=== PATIENT | male | born 1955 ===

== ENCOUNTER 2017-01-04 08:30 | Day surgery (SDC) | payer MEDICARE, OTHER ==
[2016-08-18 10:47] VITALS: BMI 30.1
[2017-01-04 08:52] VITALS: RESP 18
[2017-01-04] MEDS ORDERED: Lidocaine 1% Inj (20ml) ONE (09:29)
[2017-01-04] MEDS ORDERED: Iohexol 300 10 ML ONE (09:29)
[2017-01-04] MEDS ORDERED: MethylPREDNISolone Depo 40 mg/ml Inj ONE (09:29)
[2017-01-04] MEDS ORDERED: Bupivacaine HCl 0.25% PF (10 ml) Inj ONE (09:29)
[2017-01-04] MEDS ORDERED: Propofol 10 mg/ml Inj (20 ML) ONE (10:05)
[2017-01-04] MEDS ORDERED: Midazolam 2 MG/2 ML VIAL ONE (10:06)
[2017-01-04] MEDS ORDERED: Lactated Ringer's 1,000 ML IV ONE (10:10)
[2017-01-04] MEDS ORDERED: Lidocaine 1% Inj (20ml) IJ ONE (10:20)
[2017-01-04] MEDS ORDERED: methylPREDNISolone Depo 80 mg/ml Inj IM ONE (10:20)
[2017-01-04] MEDS ORDERED: Iohexol 300 10 ML IJ ONE (10:20)
[2017-01-04] MEDS ORDERED: Insulin Regular 100 units/ml SC SCH (11:30)
--- NOTE | 2017-01-04 11:36 | OP ---
PROCEDURE DATE: 01/04/2017 PROCEDURE: Right transforaminal epidural at right L5 under fluoroscopic guidance. PREOPERATIVE DIAGNOSIS: Lumbar radiculopathy. POSTOPERATIVE DIAGNOSIS: Lumbar radiculopathy. COMPLICATIONS: None. EXPECTED BLOOD LOSS: None. After informed consent was obtained, the patient was brought to the OR and placed on the table in prone position. All pressure points were padded, and sedation was administered by anesthesia. Next, lumbosacral spine was then prepped and draped with iodine x 3 and draped in normal sterile fashion. The right L5 transforaminal space was identified using AP and oblique views. One mL of 1% lidocaine was used to create a skin wheal. Using a 22 gauge 3-1/2 inch spinal needle, the needle was advanced into the right L5 transforaminal epidural space, towards 6 oclock position on right L5 pedicle, without paresthesia. After negative aspiration for heme or CSF, 2 mL of Omnipaque 300 contrast dye was used to delineate the epidural space. After negative aspiration for heme or CSF, 5 mL of 0.5% lidocaine and Depo-Medrol was easily instilled. This procedure was attempted at the right L4 transforaminal epidural space, but the needle could not be inserted into the right L4 transforaminal epidural space. The patient had no paresthesia during the procedure. Depo-Medrol 80 mg were used for the case. The patient had no paresthesia during the procedure. The patient was brought to stage II recovery room with bilateral lower extremity motor and sensory intact. Ubaldo Bowser MD cc: [id number] TT: 01/04/2017 11:35:23 en MTDD
[2017-01-04 11:46] VITALS: BP 121/74; PULSE 59; TEMP 97.6
[2017-01-04 13:04] VITALS: O2SAT 99
--- NOTE | 2017-01-05 13:41 | RAD ---
PROCEDURE: Intraoperative Fluoroscopy. HISTORY: PAIN MANAGEMENT FINDINGS: Fluoroscopic assistance was provided for epidural pain management procedure. Approximately 51.6 seconds fluoroscopy time utilized during this procedure. Radiation dose = 13.99 mGy. Please refer to
== END 2017-01-04 13:00 | disposition home or self-care (01) ==
LOC: H.OPSURG 08:30
PROVIDERS: ATTEND Anesthesiology Pain Medicine
DX: M54.16 Radiculopathy, lumbar region (principal); E11.9 Type 2 diabetes mellitus without complications
CPT/HCPCS: 64483; 82948; J1030; J1040; J2250; J2704; J3010; J7120; Q9967

== ENCOUNTER 2017-06-14 10:31 | Day surgery (SDC) | payer MEDICARE, SELFPAY ==
[2017-06-09 16:50] VITALS: BMI 27.4
[2017-06-14] MEDS ORDERED: Lidocaine 1% 20 MG/2 ML PF AMP ONE (12:52)
[2017-06-14] MEDS ORDERED: methylPREDNISolone Depo 80 mg/ml Inj ONE (12:52)
[2017-06-14] MEDS ORDERED: Iohexol 300 10 ML ONE (12:53)
[2017-06-14] MEDS ORDERED: Lidocaine 1% Inj (20ml) ONE (12:53)
[2017-06-14] MEDS ORDERED: Lidocaine 2% MPF (5 ml) Inj ONE (12:54)
[2017-06-14] MEDS ORDERED: Propofol 10 mg/ml Inj (20 ML) ONE (12:54)
[2017-06-14] MEDS ORDERED: Bupivacaine HCl 0.25% PF (10 ml) Inj ONE (13:14)
[2017-06-14] MEDS ORDERED: Lactated Ringer's 1,000 ML IV ONE (13:14)
[2017-06-14 15:41] VITALS: TEMP 98.2
[2017-06-14 16:06] VITALS: BP 127/77; PULSE 62; RESP 18; O2SAT 98
--- NOTE | 2017-06-14 18:50 | RAD ---
PROCEDURE: Epidural injection HISTORY: PAIN MANAGEMENT COMPARISON: None TECHNIQUE: Standard protocol for this study/examination. FINDINGS: Total fluoroscopic time (continuous mode) utilized during the procedure: 3.8 seconds. IMPRESSION: Less than 1 hr fluoroscopic time utilized during performance of the procedure.
--- NOTE | 2017-06-15 11:34 | OP ---
PROCEDURE DATE: 06/14/2017 PREOPERATIVE DIAGNOSIS: Lumbar radiculopathy. POSTOPERATIVE DIAGNOSIS: Lumbar radiculopathy. PROCEDURE: Caudal epidural under fluoroscopic guidance. ESTIMATED BLOOD LOSS: None. COMPLICATIONS: None. DESCRIPTION OF PROCEDURE: After informed consent was obtained, the patient was brought to the OR and placed on the table in a prone position. All pressure points were padded and sedation was administered by Anesthesia. The lumbosacral spine was prepped and draped with iodine x3 and draped in normal sterile fashion. 2 mL of 1% lidocaine was used to create a skin wheal using a 25-gauge needle. X-ray was used in the AP and lateral views to identify the sacral hiatus. A 22-gauge Tuohy needle was advanced under fluoroscopic guidance to lloyd the sacrococcygeal ligament. There was no paresthesia during placement of the needle. After a negative aspiration for heme or CSF, 2 mL of contrast was used to delineate the epidural space. After negative aspiration for heme or CSF, 20 mL of mixture of 0.5% preservative free lidocaine, 0.25% preservative free Marcaine, and 80 mg of Depo-Medrol was easily instilled into the epidural space. There was no paresthesia during the procedure. After the injection, the patient was brought to stage II recovery room. The patient had bilateral lower extremity motor and sensory intact. The patient was discharged to same day surgery with stable vital signs. Ubaldo Bowser MD YELITZA
== END 2017-06-14 16:27 | disposition home or self-care (01) ==
LOC: H.OPSURG 10:31
PROVIDERS: ATTEND Anesthesiology Pain Medicine
DX: M54.16 Radiculopathy, lumbar region (principal); I25.10 Atherosclerotic heart disease of native coronary artery without angina pectoris; G40.909 Epilepsy, unspecified, not intractable, without status epilepticus; E11.9 Type 2 diabetes mellitus without complications
CPT/HCPCS: 62323; 82948; J1040; J2704; J7120; Q9967

== ENCOUNTER 2017-12-13 10:51 | Day surgery (SDC) | payer MEDICARE, MEDICAID, OTHER ==
[2017-12-13 11:53] VITALS: BMI 29.4
[2017-12-13] MEDS ORDERED: Propofol 10 mg/ml Inj (20 ML) ONE (15:02)
[2017-12-13] MEDS ORDERED: Lidocaine Hydrochloride 1% 20 ML ONE (15:04)
[2017-12-13] MEDS ORDERED: MethylPREDNISolone Depo 40 mg/ml Inj ONE (15:04)
[2017-12-13] MEDS ORDERED: Lidocaine 1% (10 ml) Inj IV ONE (15:27)
[2017-12-13] MEDS ORDERED: MethylPREDNISolone Depo 40 mg/ml Inj IM ONE (15:27)
[2017-12-13] MEDS ORDERED: Lactated Ringer's 1,000 ML IV ONE (15:37)
[2017-12-13] MEDS ORDERED: Lactated Ringer's 1,000 ML IV SCH (16:30)
[2017-12-13 16:58] VITALS: O2SAT 100
[2017-12-13 17:02] VITALS: BP 111/70; PULSE 52; RESP 18; TEMP 98
--- NOTE | 2017-12-13 17:04 | RAD ---
PROCEDURE: Fluoroscopy up to 1 hr. HISTORY: INJECTION COMPARISON: None TECHNIQUE: Standard protocol for this study/examination. FINDINGS: Total fluoroscopic time (continuous mode) utilized during the procedure 16.5 (seconds). Total exam DLP: (mGy) 2.14 IMPRESSION: Less than 1 hr fluoroscopic time utilized during performance of the procedure.
--- NOTE | 2017-12-17 07:09 | OP ---
DATE: 12/13/2017 LOCATION: [facility]. PREOPERATIVE DIAGNOSIS: Sacroiliitis. POSTOPERATIVE DIAGNOSIS: Sacroiliitis. PROCEDURE: Sacroiliac joint injection under x-ray guidance. SURGEON: Ubaldo Bowser MD ANESTHESIOLOGIST: Tito Lam MD COMPLICATIONS: None. ESTIMATED BLOOD LOSS: None. DESCRIPTION OF PROCEDURE: After informed consent was obtained, the patient was brought to the OR and placed on the table on prone position. All pressure points were padded and sedation was administered by Anesthesia. The lumbosacral spine was prepped with iodine x3 and draped in normal sterile fashion. X-ray was used in the AP view to identify the sacroiliac joint. A 3 mL of 1% lidocaine was used to create a skin wheal, using a 25-gauge needle. A 22-gauge 3-1/2-inch spinal needle was placed to bony contact at the inferomedial portion of the right sacroiliac joint. After negative aspiration for heme or CSF, 2 mL of 1% lidocaine and Depo-Medrol was easily instilled. This procedure was repeated for the middle and superior borders of the right sacroiliac joint and lower border of the left sacroiliac joint. There was no paresthesia during the case. An 80 mg of Depo-Medrol was used for the case. The patient was brought to stage II recovery room with bilateral lower extremity motor and sensory intact. Ubaldo Bowser MD MTDD
== END 2017-12-13 17:20 | disposition home or self-care (01) ==
LOC: H.OPSURG 10:51
PROVIDERS: ATTEND Anesthesiology Pain Medicine
DX: M46.1 Sacroiliitis, not elsewhere classified (principal); E11.9 Type 2 diabetes mellitus without complications; E78.5 Hyperlipidemia, unspecified; I10 Essential (primary) hypertension; G40.909 Epilepsy, unspecified, not intractable, without status epilepticus
CPT/HCPCS: 82948; G0259; J1030; J2704; J7120

== ENCOUNTER 2018-04-26 17:41 | Emergency (ER) | payer MEDICARE, MEDICAID ==
[2018-04-26 17:42] VITALS: BMI 29.4
[2018-04-26 17:53] VITALS: TEMP 97.7
--- NOTE | 2018-04-26 18:48 | ED PDOC ---
Lower Extremity Pain/Injury Time Seen by Provider: 04/26/18 18:38 Chief Complaint (Nursing): Chest Pain History Per: Patient Onset/Duration Of Symptoms: Days (2) Current Symptoms Are (Timing): Still Present Severity: Mild Additional Complaint(s): Left thigh pain x 2 days. No h/o trauma. Also c/o right sided chest pain. Denies SOB Past Medical History Vital Signs: Last Vital Signs Temp 97.7 F 04/26/18 17:50 Pulse 68 04/26/18 17:50 Resp 16 04/26/18 17:50 BP 97/61 L 04/26/18 17:50 Pulse Ox 98 04/26/18 17:50 - Medical History PMH: CAD, Diabetes, HTN, Hypercholesterolemia, Hypothyroidism, Seizures Denies: HIV, Chronic Kidney Disease - Surgical History Surgical History: CABG (X 5 in 2005) - Family History Family History: States: Unknown Family Hx, CAD - Immunization History Hx Tetanus Toxoid Vaccination: No Hx Influenza Vaccination: No Hx Pneumococcal Vaccination: No - Home Medications Home Medications: Ambulatory Orders Medication Instructions Recorded Lisinopril 20 mg PO DAILY 11/14/15 Vitamin B Complex 1 cap PO HS 11/14/15 Ascorbic Acid [Vitamin C] 1,000 mg PO HS #0 tablet 06/17/16 Aspirin [Aspirin EC] 325 mg PO HS #0 tablet. 06/17/16 Atorvastatin [Lipitor] 40 mg PO DAILY #0 tab 06/17/16 Glimepiride 1 mg PO BID #0 tablet 06/17/16 Magnesium Oxide 500 mg PO HS #0 tablet 06/17/16 MetFORMIN [glucoPHAGE] 1,000 mg PO BID #0 tab 06/17/16 Metoprolol Tartrate [Lopressor] 25 mg PO Q12 #0 tab 06/17/16 Calcium Carbonate/Vitamin D3 1 tab PO DAILY 08/18/16 [Calcium 1,000 + D3 Caplet] Cyanocobalamin [Vitamin B12 1000 1 tab PO DAILY 08/18/16 mcg Tab] Levetiracetam [Keppra] 1,500 mg PO BID 30 Days tablet 08/18/16 Sycbo-1-Hheb Ethyl Esters [OMEGA 3] 1,000 mg PO DAILY 08/18/16 Pyridoxine [Vitamin B6] 200 mg PO DAILY 08/18/16 Vitamin E [Vitamin E 400 Units Cap] 1 cap PO DAILY 08/18/16 Naproxen [Naprosyn] 500 mg PO Q12H #20 tab 04/26/18 - Allergies Allergies/Adverse Reactions: Allergies Allergy/AdvReac Type Severity Reaction Status Date / Time No Known Allergies Allergy Verified 04/26/18 17:50 Review of Systems ROS Statement: Except As Marked, All Systems Reviewed And Found Negative Cardiovascular: Positive for: Chest Pain Respiratory: Negative for: Shortness of Breath Musculoskeletal: Positive for: Leg Pain Physical Exam - Reviewed Nursing Documentation Reviewed: Yes Vital Signs Reviewed: Yes - Physical Exam Appears: Positive for: Non-toxic, No Acute Distress Head Exam: Positive for: ATRAUMATIC, NORMAL INSPECTION, NORMOCEPHALIC Skin: Positive for: Normal Color, Warm, DRY Eye Exam: Positive for: EOMI, Normal appearance, PERRL ENT: Positive for: Normal ENT Inspection Neck: Positive for: Normal, Painless ROM Cardiovascular/Chest: Positive for: Regular Rate, Rhythm Respiratory: Positive for: CNT, Normal Breath Sounds Gastrointestinal/Abdominal: Positive for: Normal Exam, Soft Back: Positive for: Normal Inspection Extremity: Positive for: Normal ROM. Negative for: Calf Tenderness, Swelling Neurologic/Psych: Positive for: Alert, Oriented - ECG O2 Sat by Pulse Oximetry: 98 Disposition - Clinical Impression Clinical Impression: Musculoskeletal pain - Patient ED Disposition Is Patient to be Admitted: No Counseled Patient/Family Regarding: Studies Performed, Diagnosis, Need For Followup, Rx Given - Disposition Referrals: [facility] [Outside] Disposition: Routine/Home Disposition Time: 20:58 Condition: FAIR Prescriptions: Naproxen [Naprosyn] 500 mg PO Q12H #20 tab Instructions: Muscle and Bone Pain (DC) Forms: [facility] (Hebrew)
[2018-04-26 21:19] VITALS: BP 114/63; PULSE 57; RESP 18; O2SAT 100
--- NOTE | 2018-04-27 12:57 | US ---
Date of service: 04/26/2018 PROCEDURE: Bilateral lower extremity venous duplex Doppler. HISTORY: Left thigh pain COMPARISON: None available. TECHNIQUE: Bilateral common femoral, superficial femoral, popliteal and posterior tibial veins were evaluated. Flow was assessed with color Doppler, compressibility, assessment of phasic flow and augmentation response. FINDINGS: COMMON FEMORAL VEIN: Right CFV: Unremarkable. Left CFV: Unremarkable. SUPERFICIAL FEMORAL VEIN: Right SFV: Unremarkable. Left SFV: Unremarkable. POPLITEAL VEIN: Right Popliteal: Unremarkable. Left Popliteal: Unremarkable. POSTERIOR TIBIAL VEIN: Right PTV: Unremarkable. Left PTV: Unremarkable. OTHER FINDINGS: None. IMPRESSION: No evidence of deep venous thrombosis. Concordant results (preliminary interpretation) provided by [facility]. Procedure Completed: 19:37. Preliminary ([facility]) Report: Dictated and Authenticated: 20:16. Final Interpretation: 12:55. April 27, 2018.
--- NOTE | 2018-04-27 13:23 | RAD ---
Date of service: 04/26/2018 HISTORY: Right sided chest pain COMPARISON: 08/18/2016 TECHNIQUE: Chest PA and lateral FINDINGS: LUNGS: No active pulmonary disease. PLEURA: No significant pleural effusion identified. No pneumothorax apparent. CARDIOVASCULAR: No radiographic findings to suggest acute or significant cardiovascular disease. Incidental Finding(s): Postoperative changes related to sternotomy. OSSEOUS STRUCTURES: No significant abnormalities. VISUALIZED UPPER ABDOMEN: Normal. OTHER FINDINGS: None. IMPRESSION: No significant interval change compared to the prior examination(s).
== END 2018-04-26 21:20 | disposition home or self-care (01) ==
LOC: H.ER 17:41
DX: M79.1 Myalgia (principal); E03.9 Hypothyroidism, unspecified; E11.9 Type 2 diabetes mellitus without complications; E78.00 Pure hypercholesterolemia, unspecified; I10 Essential (primary) hypertension; Z79.82 Long term (current) use of aspirin; Z79.84 Long term (current) use of oral hypoglycemic drugs; Z82.49 Family history of ischemic heart disease and other diseases of the circulatory system; Z95.1 Presence of aortocoronary bypass graft; I25.10 Atherosclerotic heart disease of native coronary artery without angina pectoris

== ENCOUNTER 2018-09-09 19:06 | Emergency (ER) | payer MEDICARE, SELFPAY ==
[2018-09-09 19:06] VITALS: BMI 29.4
[2018-09-09 19:17] VITALS: RESP 18; O2SAT 97
[2018-09-09] MEDS ORDERED: Sodium Chloride 0.9% 500 ML IV ONE (20:11)
--- NOTE | 2018-09-09 20:15 | ED PDOC ---
History of Present Illness History of Present Illness: 63 year old male with CAD (5 bypasses), DM, Epilepsy, HTN, HLD presenting with cough, congestion x 5 weeks. States he has had the "flu" for 5 weeks with nasal congestion, headaches, bodyaches. States he's been using only natural remedies with honey and lemon and a Cameroonian remedy called "osborne" without relief. [facility] he returned from [place] recently and is concerned he contracted an illness while he was over there. [facility] for the past 2 days he has been having chest pain as well as a result of coughing. States he has phlegm as well. [facility] he had a fever of 101 today. PMD: Dr. Kami Miner, [facility] HPI: Influenza Time Seen by Provider: 09/09/18 19:53 Chief Complaint: Cough, Cold, Congestion History Per: Patient Onset/Duration Of Symptoms: Days (5 weeks) Symptoms include: fever, headache, bodyaches, cough, nasal congestion, chest pain. denies: sore throat, vomiting, diarrhea, syncope, seizure, rash, blurry vision Sick Contacts (Context): Family Member(s) Risk factors for flu complications: Yes: adult > 65 years, heart disease Past Medical History Vital Signs: Last Vital Signs Temp 99.3 F 09/09/18 19:14 Pulse 67 09/09/18 19:14 Resp 18 09/09/18 19:14 BP 129/64 09/09/18 19:14 Pulse Ox 97 09/09/18 19:14 - Medical History PMH: CAD, Diabetes, HTN, Hypercholesterolemia, Hypothyroidism, Seizures Denies: HIV, Chronic Kidney Disease - Surgical History Surgical History: CABG (X 5 in 2005) - Family History Family History: States: Unknown Family Hx, CAD - Immunization History Hx Tetanus Toxoid Vaccination: No Hx Influenza Vaccination: No Hx Pneumococcal Vaccination: No - Home Medications Home Medications: Ambulatory Orders Medication Instructions Recorded Lisinopril 20 mg PO DAILY 11/14/15 Ascorbic Acid [Vitamin C] 1,000 mg PO HS #0 tablet 06/17/16 Aspirin [Aspirin EC] 325 mg PO HS #0 tablet. 06/17/16 Atorvastatin [Lipitor] 40 mg PO DAILY #0 tab 06/17/16 Glimepiride 1 mg PO BID #0 tablet 06/17/16 Magnesium Oxide 500 mg PO HS #0 tablet 06/17/16 MetFORMIN [glucoPHAGE] 1,000 mg PO BID #0 tab 06/17/16 Metoprolol Tartrate [Lopressor] 25 mg PO Q12 #0 tab 06/17/16 Levetiracetam [Keppra] 1,500 mg PO BID 30 Days tablet 08/18/16 [id number] Ethyl Esters [OMEGA 3] 1,000 mg PO DAILY 08/18/16 Amoxicillin/Clavulanate [Augmentin 1 tab PO BID 7 Days #14 tab 09/09/18 875 MG-125 MG] Ibuprofen [Motrin Tab] 600 mg PO Q6 #30 tab 09/09/18 - Allergies Allergies/Adverse Reactions: Allergies Allergy/AdvReac Type Severity Reaction Status Date / Time No Known Allergies Allergy Verified 09/09/18 19:17 Review of Systems ROS Statement: Except As Marked, All Systems Reviewed And Found Negative Constitutional: Positive for: Fever ENT: Positive for: Nose Congestion Cardiovascular: Positive for: Chest Pain. Negative for: Palpitations Respiratory: Positive for: Cough. Negative for: Shortness of Breath Gastrointestinal: Negative for: Nausea Physical Exam - Reviewed Nursing Documentation Reviewed: Yes Vital Signs Reviewed: Yes - Physical Exam Appears: Positive for: Well, Non-toxic, No Acute Distress Head Exam: Positive for: ATRAUMATIC, NORMAL INSPECTION, NORMOCEPHALIC Skin: Positive for: Normal Color, Warm, DRY Eye Exam: Positive for: EOMI, Normal appearance, PERRL ENT: Positive for: Normal ENT Inspection Neck: Positive for: Normal, Painless ROM Cardiovascular/Chest: Positive for: Regular Rate, Rhythm Respiratory: Positive for: CNT, Normal Breath Sounds Gastrointestinal/Abdominal: Positive for: Normal Exam, Soft Back: Positive for: Normal Inspection Extremity: Positive for: Normal ROM Neurologic/Psych: Positive for: Alert, pediatric allergist II-XII, Oriented. Negative for: Motor/Sensory Deficits Medical Decision Making Medical Decision MakinPM 63 year old with stated medical history presenting with viral/flu-like illness --Patient is very well appearing with normal vitals --EKG is non-ischemic --Exam non-focal --Will check labs for abnormalities, CXR for PNA, bronchitis --Will give Tordaol for chest pain and headache 930PM --Patient has negative workup --Given risk factors, will treat for clinical bacterial respiratory infection with Augmentin --STrongly advised patient to see Dr. Miner in the clinic first thing Wednesday --REturn precautions given --Very well appearing upon discharge - Laboratory Results Result Diagrams: 09/09/18 20:37 09/09/18 20:37 - ECG O2 Sat by Pulse Oximetry: 97 Disposition - Clinical Impression Clinical Impression: Cough - Patient ED Disposition Is Patient to be Admitted: No - Disposition Referrals: Kami Miner MD [Resident] - Disposition: Routine/Home Disposition Time: 21:39 Condition: GOOD Prescriptions: Amoxicillin/Clavulanate [Augmentin 875 MG-125 MG] 1 tab PO BID 7 Days #14 tab Ibuprofen [Motrin Tab] 600 mg PO Q6 #30 tab Instructions: Acute Bronchitis, Adult (DC), Cough in Adults Forms: [facility] (Hebrew) Print Language: GREENLANDIC
[2018-09-09 20:57] LABS: BLOOD UREA NITROGEN 11 mg/dl (9-20); CALCIUM 8.5 mg/dL (8.4-10.2); GFR NON-AFRICAN AMERICAN > 60
[2018-09-09 21:03] LABS: BASO % 0.3 % (0.0-2.0); EOS % 0.2 % (0.0-4.0); HEMOGLOBIN 12.1 g/dL (12.0-18.0); LYMPH # 0.6 K/uL (1.0-4.3); LYMPH % 10.5 % (20.0-40.0); MEAN CELL VOLUME 95.6 fl (80.0-94.0); MEAN CORPUSCULAR HEMOGLOBIN 31.5 pg (27.0-31.0); MEAN PLATELET VOLUME 9.6 fl (7.2-11.7); NEUT # 4.1 K/uL (1.8-7.0); NRBC % 0.1 % (0.0-0.0); RBC 3.85 Mil/uL (4.40-5.90); RED CELL DISTRIBUTION WIDTH 13.4 % (11.5-14.5); WHITE BLOOD COUNT 5.7 K/uL (4.8-10.8)
[2018-09-09 22:37] VITALS: BP 120/62; PULSE 72; TEMP 98.8
--- NOTE | 2018-09-10 09:13 | RAD ---
Date of service: 09/09/2018 HISTORY: cough, chest pain COMPARISON: Chest radiograph dated 04/26/2018 TECHNIQUE: Chest PA and lateral FINDINGS: LUNGS: No active pulmonary disease. PLEURA: No significant pleural effusion identified. No pneumothorax apparent. CARDIOVASCULAR: Prior sternotomy with sternal wires and surgical clips in place. Aortic atherosclerotic calcifications. Cardiomediastinal silhouette stably enlarged. OSSEOUS STRUCTURES: Unchanged. VISUALIZED UPPER ABDOMEN: Normal. OTHER FINDINGS: None. IMPRESSION: No active disease.
--- NOTE | 2018-09-10 13:13 | CARD ---
APPROVED REPORT Date of service: 09/09/2018 EKG Measurement Heart [id number] <Conclusion> Normal sinus rhythm Nonspecific ST abnormality Abnormal ECG
== END 2018-09-09 21:40 | disposition home or self-care (01) ==
LOC: H.ER 19:06
DX: R05 Cough (principal); E03.9 Hypothyroidism, unspecified; E11.9 Type 2 diabetes mellitus without complications; E78.00 Pure hypercholesterolemia, unspecified; G40.909 Epilepsy, unspecified, not intractable, without status epilepticus; I10 Essential (primary) hypertension; I25.10 Atherosclerotic heart disease of native coronary artery without angina pectoris; Z79.84 Long term (current) use of oral hypoglycemic drugs; Z95.1 Presence of aortocoronary bypass graft
CPT/HCPCS: 71046; 80048; 83605; 84484; 85025; 93005; 96374; 99283; J1885; J7040